=== PATIENT | male | born 1995 | race Two or more races ===

== ENCOUNTER 2024-10-24 05:51 | Emergency (ER) | payer OTHER ==
[~2024-10-24] VITALS: Ht 175.3 cm; Wt 54.4 kg
[2024-10-24 06:06] VITALS: BP 117/81; O2SAT 98
[2024-10-24] MEDS ORDERED: KETOROLAC TROMETHAMINE 60 MG VIAL IM STA (07:32)
[2024-10-24] MEDS ORDERED: ORPHENADRINE CITRATE 30 MG/ML AMPUL IM STA (07:33)
== END 2024-10-24 10:32 | disposition home or self-care (01) ==
LOC: ER 05:51
DX: R51.9 Headache, unspecified (principal); M62.838 Other muscle spasm